=== PATIENT | female | born 1980 | race Caucasian/White ===

== ENCOUNTER 2017-03-15 13:30 | Emergency (ER) | payer SELFPAY ==
--- NOTE | ~2017-03-15 | ER ---
PATIENT'S NAME: REAGAN [facility]A [facility] AGE: 37 Y [address] ROOM: [place] [id number] LOCATION: [facility] ADMIT DATE: 03/15/2017 ER/Outpatient Report DISCHARGE DATE: 03/15/2017 FAMILY PHYSICIAN: Andrea Do MD ATTENDING PHYSICIAN: Ricardo Morrissey CHIEF COMPLAINT: Low back pain, sacral pain. HISTORY OF PRESENT ILLNESS: Few weeks ago, the patient bent over in the shower and struck her coccyx on the faucet. Since then, she has had worsening pain in her low back, sacral, and coccygeal region. She has not really done anything to make this better, and today, it was just too painful. It is painful to lay down. It is painful to stand up. She just can not get comfortable. She has not seen anyone for this. The pain does not radiate anywhere. She denies any fevers or chills. PAST MEDICAL HISTORY: Documented on the record and reviewed by me. SOCIAL HISTORY: Documented on the record and reviewed by me. MEDICATIONS: Documented on the record and reviewed by me. ALLERGIES: DOCUMENTED ON THE RECORD AND REVIEWED BY ME. REVIEW OF SYSTEMS: All systems reviewed and negative except as noted in the HPI. PHYSICAL EXAMINATION: VITAL SIGNS: Blood pressure 113/61, pulse 109, respiratory rate is 20, temperature 99.6, SpO2 is 96% on room air. Pain is rated at 10/10. GENERAL: An age-appropriate female, in obvious [id number] pain, standing at bedside bent over with no respiratory distress. NEUROLOGIC: Awake and alert. GCS is 15. No focal deficits. No asymmetry. HEENT: Normocephalic, atraumatic. Eyes are PERRL. Oropharynx is clear. NECK: Supple. Trachea is midline. CHEST. Heart is regular rate and rhythm with no murmurs. LUNGS: Clear to auscultation bilateral. ABDOMEN: Appears to be benign, soft, nontender with no rebound or guarding. BACK: Normal to inspection and palpation of the C, T, and L-spine. There is some tenderness over the distal sacrum and coccyx. No erythema. No CVA PATIENT'S NAME: REAGAN [facility]A [facility] AGE: 37 Y [address] ROOM: [place], [place] [address] LOCATION: [facility] ADMIT DATE: 03/15/2017 ER/Outpatient Report DISCHARGE DATE: 03/15/2017 FAMILY PHYSICIAN: Andrea Do MD ATTENDING PHYSICIAN: Ricardo Morrissey tenderness. RECTAL: Normal rectal tone. There is no fluctuance or tenderness internally. This does not reproduce pain. Externally, the area of the gluteal cleft just anterior to the coccyx is exquisitely tender with no erythema. No fluctuance. No skin changes. EXTREMITIES: Warm and well perfused. SKIN: Clean, dry, intact otherwise. LABORATORY DATA AND X-RAYS: CBC, CMS, ESR, CRP, lactate, and procalcitonin were obtained with no appreciable abnormalities. Renal function is appropriate. HCG is negative. INR is less than 1. CT scan of the pelvis does not reveal any abnormalities per Radiology review. IMPRESSION: Coccygeal pain, unclear etiology. EMERGENCY DEPARTMENT COURSE: The patient was seen and evaluated. She was given Zofran and morphine for pain with marked improvement but not resolution. CT scan and labs were obtained. Physical exam and labs are not consistent with infectious etiology. I see no evidence of skin findings consistent with infection. No evidence of abscess. She was feeling better. We will give her a short course of [place], and I did discuss the patient with Dr. Do, the patient's primary care provider, and she was referred to him for further evaluation and treatment in 24 to 48 hours if not markedly improved. All questions were answered, and the patient was discharged in stable condition with improved symptoms. MD ANGELITO LAWSON/omari /[id number] d: 03/15/[id number] t: 03/22/17 1019, OUTPATIENT REPORT
[~2017-03-15 13:30] MED LIST: FEOSOL325 MG PO; MOTRIN800 MG PO; PRENATAL 1+1)(P1 TAB PO
[2017-03-15 14:08] LABS: BASOPHIL # 0.1 K/uL (0.0-0.2); BASOPHIL % 0.9 %; EOSINOPHIL # 0.1 K/uL (0.0-0.5); EOSINOPHIL % 0.8 %; HEMATOCRIT 42.8 % (33.0-46.0); HEMOGLOBIN 14.4 g/dL (11.0-15.0); IMMATURE GRANULOCYTE % 0.3 %; LYMPHOCYTE # 1.6 K/uL (0.8-4.0); LYMPHOCYTE % 20.9 %; MCH 29.7 pg (27.0-34.0); MCHC 33.6 gm/dL (32.0-36.5); MCV 88.2 fl (83.0-98.0); MONOCYTE # 0.6 K/uL (0.0-1.0); MONOCYTE % 7.6 %; MPV 9.7 fl (9.4-12.4); NEUTROPHIL # (ANC) 5.5 K/uL (1.8-7.8); NEUTROPHIL % 69.5 %; NRBC % 0 /100WBC (0-0.00); PLATELET COUNT 284 K/uL (150-450); RDW-CV 13.3 % (11.9-14.6); WBC 7.9 K/uL (4.0-11.0)
[2017-03-15 14:09] LABS: RBC 4.85 M/uL (3.50-5.50)
[2017-03-15 14:17] LABS: INR - (THERAPEUTIC) 0.97 (0.92-1.07); PROTIME 10.2 SECONDS (9.8-11.4); PTT 28 SECONDS (25-32)
[2017-03-15 14:26] LABS: ALBUMIN 3.7 gm/dL (3.5-5.0); ALK PHOS 44 IU/L (33-138); ALT 25 IU/L (12-78); ANION GAP 10.7 (10.0-19.0); AST 27 IU/L (10-40); BLOOD UREA NITROGEN 8 mg/dL (6-24); CALCIUM 8.5 mg/dL (8.5-10.5); CHLORIDE 108 mMol/L (96-110); CO2 25 mMol/L (22-32); CREATININE 0.9 mg/dL (0.5-1.1); POTASSIUM 3.7 mMol/L (3.7-5.1); SODIUM 140 mMol/L (135-145); TOTAL BILIRUBIN 0.6 mg/dL (0.0-1.5); TOTAL PROTEIN 6.8 g/dL (6.0-8.4)
== END 2017-03-15 15:28 | disposition disaster alternative care site (69) ==
LOC: GACC 13:30
PROVIDERS: Emergency Medicine
DX: M53.3 Sacrococcygeal disorders, not elsewhere classified (principal); Z88.1 Allergy status to other antibiotic agents; Z98.890 Other specified postprocedural states
CPT/HCPCS: J2270; J2405; Q9967